=== PATIENT | female | born 1985 | race African-American/Black ===

== ENCOUNTER 2016-11-16 19:36 | Emergency (ER) | payer MEDICAID ==
[~2016-11-16] VITALS: Ht 170.2 cm; Wt 88.0 kg
[~2016-11-16 19:36] MED LIST: BACT800T5 PO; DICL50TA2 PO; FLAG500T PO; METH750T2 PO; METR-1 PO
[2016-11-16 19:38] VITALS: BP 142/85; PULSE 76; RESP 16; TEMP 98.3; O2SAT 100
[2016-11-16 23:01] LABS: BACTERIA, URINE MANY /hpf; BLOOD, URINE MOD (NEG); COMMENT (UR) CULTURE INDICATED; CULTURE IF INDICATED CULTURE INDICATED; GLUCOSE,URINE NEG (NEG); KETONE, URINE NEG (NEG); MUCUS URINE MANY /lpf (OCC); NITRITE,URINE NEG (NEG); PH, URINE 5.5 (5.0-8.5); SQUAMOUS EPITHELIAL CELL URINE 9 /hpf (0-5); URINE COLOR YELLOW (YELLW/STRAW)
== END 2016-11-17 00:50 | disposition left against medical advice (07) ==
LOC: NED 19:36
DX: R10.9 Unspecified abdominal pain (principal); Z53.29 Procedure and treatment not carried out because of patient's decision for other reasons
CPT/HCPCS: 81001; 84703; 87077; 87086; 87186; 99281

== ENCOUNTER 2016-12-21 14:56 | Emergency (ER) | payer MEDICAID ==
[2016-12-21 15:00] VITALS: BP 123/86; PULSE 89; RESP 15; TEMP 97.4; O2SAT 99
[2016-12-21 15:10] VITALS: BP 122/66; PULSE 79; RESP 19; TEMP 98.5; O2SAT 97
--- NOTE | 2016-12-21 15:23 | PD ---
HPI . right knee pain Chief Complaint: Musculoskeletal Complaint Time Seen by Provider: 15:22 Travel History International Travel<30 days: No Contact w/Intl Traveler<30days: No Traveled to known affect area: No History of Present Illness HPI 31-year-old female who is 40 weeks plus and was due on December 15, 2016 here with complaints of right knee pain. Patient tells me that she wants me to relocate her knee. It is obviously not dislocated. She is ambulatory. She is accompanied by her significant other who told her this was not a medical emergency and that she can't take any medications due to her status. PFSH Past Medical History Diminished Hearing: No Reproductive: Yes Immunizations Current: Yes ?: : 2 Para: 2 Past Surgical History Section: Yes (X 2) Gynecologic Surgery: Yes (TWO C-SECTIONS) Social History Alcohol Use: No Tobacco Use: No Substance Use: No Allergies-Medications (Allergen,Severity, Reaction): Coded Allergies: No Known Allergies (Verified , 12/21/16) Reported Meds & Prescriptions Reported Meds & Active Scripts Active Review of Systems General / Constitutional: No: Fever Eyes: No: Visual changes HENT: No: Headaches Cardiovascular: No: Chest Pain or Discomfort Respiratory: No: Shortness of Breath Gastrointestinal: No: Abdominal Pain Genitourinary: No: Dysuria Musculoskeletal: Positive: Pain (right knee) Skin: No Rash Neurologic: No: Weakness Psychiatric: No: Depression Endocrine: No: Polydipsia Hematologic/Lymphatic: No: Easy Bruising Physical Exam Narrative GENERAL: AAO x 3, no acute distress, Well-nourished, well-developed patient. SKIN: Warm and dry. No visible rashes or bruising. HEAD: Normocephalic and atraumatic. EYES: No scleral icterus. No injection or drainage. ENT: No nasal drainage noted. Mucous membranes pink. Airway patent. NECK: Supple, trachea midline. No JVD. CARDIOVASCULAR: Regular rate and rhythm without murmurs, gallops, or rubs. RESPIRATORY: Breath sounds equal bilaterally. No accessory muscle use. No rhonchi or rales. GASTROINTESTINAL: visibly EXTREMITIES: No cyanosis or edema. right knee full mobile, no edema; no evidence dislocation BACK: No obvious deformity. NEURO: CN II-12 intact, PSYCH: AAO x 3, normal affect. Data Data Last Documented VS Vital Signs Date Time Temp Pulse Resp B/P Pulse Ox O2 Delivery O2 Flow Rate FiO2 12/21/16 15:10 98.5 79 19 122/66 97 Room Air MDM Medical Decision Making Medical Screen Exam Complete: Yes Emergency Medical Condition: No Medical Record Reviewed: Yes Differential Diagnosis Arthritis, knee pain secondary and extra weight gain, less likely dislocation, less likely fracture Narrative Course A medical screening exam was performed: At the time of evaluation the presenting medical condition was determined not to be of an emergent nature. The patient was given the option of receiving additional care, but declined. Patient was given options for additional community resources from which to obtain care. The Patient Has Been advised to seek medical attention for their presenting complaint. The patient has been advised to return to the ER at any time if an emergent condition develops. Diagnosis Primary Impression: Knee pain, right Qualified Code: M25.561 - Acute pain of right knee Condition: Stable Juanis Mccurdy Dec 21, 2016 15:23
== END 2016-12-21 16:25 | disposition left against medical advice (07) ==
LOC: NEPK 14:56
DX: M25.561 Pain in right knee (principal)
CPT/HCPCS: 99281

== ENCOUNTER 2017-07-21 15:39 | Emergency (ER) | payer MEDICAID ==
[2017-07-21 15:56] VITALS: BP 132/80; PULSE 78; RESP 22; TEMP 98.6
[2017-07-21] MEDS ORDERED: LORazepam 0.5 MG TAB PO ONE (16:15)
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
== END 2017-07-21 16:59 | disposition home or self-care (01) ==
LOC: NEPD 15:39
DX: T59.3X3A Toxic effect of lacrimogenic gas, assault, initial encounter (principal); H10.213 Acute toxic conjunctivitis, bilateral; F41.9 Anxiety disorder, unspecified
CPT/HCPCS: 99283